=== PATIENT | male | born 1955 | race Caucasian/White ===

== ENCOUNTER → 2020-12-21 | Outpatient (CLI) | payer OTHER ==
[2020-12-21 11:05] LABS: ALBUMIN 4.5 g/dL (3.4-4.8); POTASSIUM 3.7 mmol/L (3.5-5.1)
[2020-12-21 11:06] LABS: CALCIUM 8.7 mg/dL (8.3-10.5)
[2020-12-21 11:07] LABS: TOTAL PROTEIN 7.1 g/dL (6.2-8.1)
[2020-12-21 11:09] LABS: TOTAL BILIRUBIN 0.5 mg/dL (0.2-1.2)
[2020-12-21 11:13] LABS: EOS # 0.2 (0.04-0.40); EOS % 2.9 % (0.0-4.0); HEMATOCRIT 43.4 % (42.0-52.0); HEMOGLOBIN 14.5 g/dL (13.5-18.0); LYMPH# 1.6 (1.50-4.00); MEAN CELL VOLUME 93 fl (78-100); MEAN CORPUSCULAR HEMOGLOBIN 31 pg (27-31); MEAN CORPUSCULAR HGB CONC 33 g/dL (33-37); MEAN PLATELET VOLUME 9.8 fl (7.4-10.4); MONO # 0.5 (0.20-0.80); PLATELET COUNT 181 K/mm3 (130-400); RED BLOOD COUNT 4.66 M/mm3 (4.20-5.60); RED CELL DISTRIBUTION WIDTH 12.8 % (11.5-14.5); WHITE BLOOD COUNT 6.2 K/mm3 (4.8-10.8)
== END ==
LOC: LAB 10:33
PROVIDERS: Internal Medicine
DX: I10 Essential (primary) hypertension (principal); I25.10 Atherosclerotic heart disease of native coronary artery without angina pectoris; K90.9 Intestinal malabsorption, unspecified

== ENCOUNTER 2021-03-31 10:51 | Observation (INO) | payer MEDICARE ==
[2021-03-31 11:12] LABS: BASO # 0.01 (0.02-0.10); EOS # 0.09 (0.04-0.40); HEMATOCRIT 46.1 % (42.0-52.0); HEMOGLOBIN 15.8 g/dL (13.5-18.0); LYMPH# 0.84 (1.50-4.00); MEAN CELL VOLUME 93 fl (78-100); MEAN CORPUSCULAR HEMOGLOBIN 32 pg (27-31); MEAN CORPUSCULAR HGB CONC 34 g/dL (33-37); MEAN PLATELET VOLUME 9.5 fl (7.4-10.4); MONO # 0.17 (0.20-0.80); NEU # 1.85 (1.40-6.50); PLATELET COUNT 168 K/mm3 (130-400); RED BLOOD COUNT 4.94 M/mm3 (4.20-5.60)
[2021-03-31 11:21] LABS: ALBUMIN 4.2 g/dL (3.4-4.8)
[2021-03-31 11:22] LABS: POTASSIUM 4.3 mmol/L (3.5-5.1); SODIUM 140 mmol/L (136-145)
[2021-03-31 11:23] LABS: CALCIUM 8.6 mg/dL (8.3-10.5)
[2021-03-31 11:24] LABS: GLUCOSE 135 mg/dL (75-110); TOTAL PROTEIN 6.7 g/dL (6.2-8.1)
[2021-03-31 11:25] LABS: CARBON DIOXIDE 24 mmol/L (23-31)
[2021-03-31 11:26] LABS: TOTAL BILIRUBIN 0.9 mg/dL (0.2-1.2)
[2021-03-31 11:29] LABS: AST-SGOT 19 U/L (5-34)
[2021-03-31 11:30] LABS: ALT/SGPT 28 U/L (0-55)
[2021-03-31 11:35] LABS: PROTHROMBIN TIME 10.1 SECONDS (9.0-12.0)
[2021-03-31 11:46] LABS: TROPONIN-I < 0.03 ng/mL (<0.030)
[2021-03-31 11:58] LABS: D-DIMER 1.8 mg/L FEU (0.15-0.50)
[2021-03-31 12:16] VITALS: BP 128/91
[2021-03-31] MEDS ORDERED: AMLODIPINE BESYL5 MG PO (12:23)
[2021-03-31] MEDS ORDERED: ATORVASTATIN CA40 MG PO (12:23)
[2021-03-31] MEDS ORDERED: COZAAR25 M1 PO (12:23)
[2021-03-31] MEDS ORDERED: INDERAL LA80 MG PO (12:24)
[2021-03-31] MEDS ORDERED: ISOSORBIDE MONO60 M2 PO (12:24)
[2021-03-31] MEDS ORDERED: PROAIR HFA0.09 MG/AC IH (12:25)
[2021-03-31] MEDS ORDERED: CLOPIDOGREL PO (12:25)
[2021-03-31] MEDS ORDERED: ASPIRIN E.C. 8181 MG PO (12:25)
[2021-03-31] MEDS ORDERED: PRILOSEC 20MG20 MG PO (12:26)
[2021-03-31 14:00] VITALS: BP 120/81
[2021-03-31 14:07] LABS: URINE APPEARANCE CLEAR; URINE BILIRUBIN NEGATIVE (NEGATIVE); URINE COLOR YELLOW; URINE GLUCOSE NEGATIVE (NEGATIVE); URINE KETONE NEGATIVE (NEGATIVE); URINE NITRATE NEGATIVE (NEGATIVE); URINE PROTEIN(semi-quant) TRACE mg/dL (NEGATIVE); URINE UROBILINOGEN NORMAL (NORMAL)
[2021-03-31 14:08] LABS: URINE BLOOD NEGATIVE (NEGATIVE); URINE LEUKOCYTE ESTERASE NEGATIVE (NEGATIVE)
[2021-03-31 16:17] VITALS: BP 105/66
--- NOTE | 2021-03-31 16:18 | NUR ---
Patient admitted to observation, room 205 from ED. C/o abd pain, N/V/D and chest discomfort. He states, "it feels like chest pressure". Patient had multiple liquid, brown, foul smelling stool in ED. 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 Has a hx of kidney stones and bladder cancer. Cancer removed and patient f/u with urology. Had x3 stent placment for MT in 2019. Patient's , Anna at bedside. Patient A&Ox4, able to answer questions and make medical desicions. Placed on telemetry and given a clear liquid diet. Abd round, soft with rigitity to RLQ. No pain or dicomfort on palpation. Audible in all 4 quadrants. Overall apperance grayish with general malaise. Meets criteria for COVID-19 testing. Test complete. Patient negative for COVID-19 and no longer in isolation precautions. Call light within reach. Bed in lowest and locked position.
[2021-03-31 16:23] VITALS: BP 105/66
--- NOTE | 2021-03-31 17:06 | NUR ---
INITIATE TELEMETRY AT THIS TIME
[2021-03-31 18:07] VITALS: BP 105/66
--- NOTE | 2021-03-31 19:00 | NUR ---
Report received from Inna CARMONA.
--- NOTE | 2021-03-31 20:00 | NUR ---
Patient awakened for meds. Reports minimal pain at this time and feeling better. HS meds reviewed and given. Pleasant, alert and oriented x 4. Denies shortness of breath. Kahn draining clear yellow urine.
--- NOTE | 2021-03-31 21:30 | NUR ---
Patient 1 assist to BSC and passes alot of gas, has small loose bm. Rests back in bed.
[2021-03-31 21:57] VITALS: BP 130/79
--- NOTE | 2021-04-01 01:40 | NUR ---
Patient has been resting with eyes closed. Respirations with ease.
[2021-04-01 02:12] VITALS: BP 121/73
--- NOTE | 2021-04-01 04:30 | NUR ---
Patient awakened for meds. Denies pain then states "just a slight headache"but denies need for pain med. Alert and oriented x 4. Returns to resting with eyes closed.
[2021-04-01 06:20] VITALS: BP 123/77
[2021-04-01 07:00] LABS: EOS # 0.12 (0.04-0.40); HEMATOCRIT 40.1 % (42.0-52.0); HEMOGLOBIN 13.9 g/dL (13.5-18.0); LYMPH# 0.87 (1.50-4.00); MEAN CELL VOLUME 94 fl (78-100); MEAN CORPUSCULAR HEMOGLOBIN 33 pg (27-31); MEAN CORPUSCULAR HGB CONC 35 g/dL (33-37); MEAN PLATELET VOLUME 9.6 fl (7.4-10.4); MONO # 0.33 (0.20-0.80); NEU # 4.62 (1.40-6.50); PLATELET COUNT 142 K/mm3 (130-400); RED BLOOD COUNT 4.26 M/mm3 (4.20-5.60); RED CELL DISTRIBUTION WIDTH 12.4 % (11.5-14.5)
[2021-04-01 07:11] LABS: POTASSIUM 4.2 mmol/L (3.5-5.1)
[2021-04-01 07:12] LABS: CALCIUM 7.8 mg/dL (8.3-10.5)
--- NOTE | 2021-04-01 07:22 | NUR ---
REPORT RECEIVED FROM SAMY CARMONA. PT AWAKE ET SITTING UP IN BED. HE DENIES ANY PAIN OR CONCERNS AT THIS TIME. CALL LIGHT IN REACH.
[2021-04-01 09:47] VITALS: BP 128/75
--- NOTE | 2021-04-01 10:20 | NUR ---
IV fluids dc'c per Mere Ugarte RN per dr. balbuena.
[2021-04-01 13:35] VITALS: BP 111/72
[2021-04-01] MEDS ORDERED: DOXYCYCLINE MO100 M3 PO (16:37)
--- NOTE | 2021-04-01 16:45 | NUR ---
PT CALLED ET STATED HE VOIDED ET IS READY TO BE DISCHARGED.
--- NOTE | 2021-04-01 16:47 | NUR ---
INT, TELE, ET ALAN CATHETER DC'D AT THIS TIME. PT UP GETTING DRESSED ET WILL CALL WHEN HE VOIDS ET IS READY TO DISCHARGE.
--- NOTE | 2021-04-01 16:57 | NUR ---
PT NOTIFIED THIS NURSE THAT HE HAD VOIDED ET IS READY TO DC. HE DENIES ANY DISCOMFORT WITH URINATION POST CATHETER REMOVAL.
--- NOTE | 2021-04-01 17:05 | NUR ---
PT LEFT UNIT ACCOMPANIED BY STAFF ET HIS . HE LEFT WITH ALL PERSONAL BELONGINGS ET DISCHARGE PAPERWORK.
[2021-04-02 19:22] LABS: TB LYME DISEASE SEROLOGY Equivocal (Negative)
[2021-04-02 23:29] LABS: TB A PHAGOCYTOPHILUM IgG <1:64 titer (<1:64)
[2021-04-02 23:33] LABS: TB BABESIA MICROTI IgG <1:64 titer (<1:64); TB E CHAFFEENSIS IgG <1:64 titer (<1:64)
== END 2021-04-01 17:05 | disposition home or self-care (01) ==
LOC: ED 10:51 → MED/SURG 13:33
PROVIDERS: ADMIT Physician Assistant
DX: R07.89 Other chest pain (principal); R55 Syncope and collapse; K52.9 Noninfective gastroenteritis and colitis, unspecified; N13.30 Unspecified hydronephrosis; S30.862A Insect bite (nonvenomous) of penis, initial encounter; W57.XXXA Bitten or stung by nonvenomous insect and other nonvenomous arthropods, initial encounter; I25.10 Atherosclerotic heart disease of native coronary artery without angina pectoris; I10 Essential (primary) hypertension; Z79.82 Long term (current) use of aspirin; Z85.51 Personal history of malignant neoplasm of bladder; Z79.899 Other long term (current) drug therapy; Z86.19 Personal history of other infectious and parasitic diseases
CPT/HCPCS: G0378; J1650; J1885; J2405; J2550; J7030; Q9967

== ENCOUNTER 2021-05-11 05:24 | Emergency (ER) | payer MEDICARE ==
[~2021-05-11 05:24] MED LIST: AMLODIPINE BESYL5 MG PO; ASPIRIN E.C. 8181 MG PO; ATORVASTATIN CA40 MG PO; CLOPIDOGREL PO; COZAAR25 M1 PO; DOXYCYCLINE MO100 M3 PO; INDERAL LA80 MG PO; ISOSORBIDE MONO60 M2 PO; PRILOSEC 20MG20 MG PO; PROAIR HFA0.09 MG/AC IH
[2021-05-11 06:24] LABS: BASO # 0.05 (0.02-0.10); EOS # 0.43 (0.04-0.40); EOS % 10.9 % (0.0-4.0); HEMATOCRIT 40.8 % (42.0-52.0); HEMOGLOBIN 14.1 g/dL (13.5-18.0); LYMPH# 1.08 (1.50-4.00); MEAN CELL VOLUME 93 fl (78-100); MEAN CORPUSCULAR HEMOGLOBIN 32 pg (27-31); MEAN CORPUSCULAR HGB CONC 35 g/dL (33-37); MEAN PLATELET VOLUME 9.4 fl (7.4-10.4); MONO # 0.38 (0.20-0.80); NEU # 2.01 (1.40-6.50); PLATELET COUNT 160 K/mm3 (130-400); RED CELL DISTRIBUTION WIDTH 11.8 % (11.5-14.5)
[2021-05-11 06:44] LABS: ALBUMIN 4.1 g/dL (3.4-4.8); POTASSIUM 3.9 mmol/L (3.5-5.1); SODIUM 140 mmol/L (136-145)
[2021-05-11 06:45] LABS: CALCIUM 8.7 mg/dL (8.3-10.5)
[2021-05-11 06:47] LABS: GLUCOSE 122 mg/dL (75-110); TOTAL PROTEIN 6.7 g/dL (6.2-8.1)
[2021-05-11 06:48] LABS: CARBON DIOXIDE 20 mmol/L (23-31); TOTAL BILIRUBIN 0.5 mg/dL (0.2-1.2)
[2021-05-11 06:52] LABS: AST-SGOT 18 U/L (5-34)
[2021-05-11 06:53] LABS: ALT/SGPT 24 U/L (0-55)
[2021-05-11 07:10] LABS: TROPONIN-I < 0.03 ng/mL (<0.030)
[2021-05-11 07:58] LABS: URINE APPEARANCE CLEAR; URINE BILIRUBIN NEGATIVE (NEGATIVE); URINE BLOOD NEGATIVE (NEGATIVE); URINE COLOR YELLOW; URINE GLUCOSE NEGATIVE (NEGATIVE); URINE KETONE NEGATIVE (NEGATIVE); URINE LEUKOCYTE ESTERASE NEGATIVE (NEGATIVE); URINE MUCUS PRESENT (NOT PRESENT); URINE NITRATE NEGATIVE (NEGATIVE); URINE PROTEIN(semi-quant) NEGATIVE (NEGATIVE); URINE UROBILINOGEN NORMAL (NORMAL); URINE WBC 0-1 /hpf (0-3)
[2021-05-11] MEDS ORDERED: ZITHROMAX Z PA250 MG PO (09:20)
[2021-05-11] MEDS ORDERED: PREDNISONE10 MG PO (09:20)
[2021-05-11] MEDS ORDERED: PROAIR HFA0.09 MG/AC IH (09:20)
[2021-05-11] MEDS ORDERED: IPRATROPIUM BROM3 M1 IH (09:20)
[2021-05-11 09:36] VITALS: BP 142/80
== END 2021-05-11 09:37 | disposition home or self-care (01) ==
LOC: ED 05:24
PROVIDERS: Nurse Practitioner
DX: J45.901 Unspecified asthma with (acute) exacerbation (principal); R07.89 Other chest pain; R42 Dizziness and giddiness; I25.2 Old myocardial infarction; Z79.82 Long term (current) use of aspirin; Z20.822 Contact with and (suspected) exposure to COVID-19
CPT/HCPCS: J2930

== ENCOUNTER → 2021-05-21 | Outpatient (CLI) | payer MEDICARE ==
[~2021-05-21] MED LIST changes: +IPRATROPIUM BROM3 M1 IH; +PREDNISONE10 MG PO; +ZITHROMAX Z PA250 MG PO
== END ==
LOC: LAB 12:05
DX: K90.9 Intestinal malabsorption, unspecified (principal)

== ENCOUNTER → 2021-06-29 | Outpatient (CLI) | payer MEDICARE ==
[2021-06-29 14:38] LABS: BASO # 0.03 (0.02-0.10); EOS % 4.8 % (0.0-4.0); HEMATOCRIT 40.5 % (42.0-52.0); HEMOGLOBIN 13.7 g/dL (13.5-18.0); LYMPH# 1.24 (1.50-4.00); MEAN CELL VOLUME 94 fl (78-100); MEAN CORPUSCULAR HEMOGLOBIN 32 pg (27-31); MEAN CORPUSCULAR HGB CONC 34 g/dL (33-37); MEAN PLATELET VOLUME 9.3 fl (7.4-10.4); MONO # 0.42 (0.20-0.80); NEU # 2.25 (1.40-6.50); PLATELET COUNT 156 K/mm3 (130-400); RED CELL DISTRIBUTION WIDTH 12.2 % (11.5-14.5); WHITE BLOOD COUNT 4.2 K/mm3 (4.8-10.8)
[2021-06-29 14:46] LABS: ALBUMIN 4.1 g/dL (3.4-4.8); POTASSIUM 4.1 mmol/L (3.5-5.1); SODIUM 141 mmol/L (136-145)
[2021-06-29 14:49] LABS: GLUCOSE 110 mg/dL (75-110); TOTAL PROTEIN 6.7 g/dL (6.2-8.1)
[2021-06-29 14:50] LABS: CARBON DIOXIDE 22 mmol/L (23-31)
[2021-06-29 14:51] LABS: TOTAL BILIRUBIN 0.9 mg/dL (0.2-1.2)
[2021-06-29 14:54] LABS: AST-SGOT 20 U/L (5-34)
[2021-06-29 14:55] LABS: ALT/SGPT 29 U/L (0-55)
[2021-06-29 16:25] LABS: ERYTHROCYTE SEDIMENTATION RATE 6 mm/hr (0-20)
== END ==
LOC: LAB 14:25
PROVIDERS: Internal Medicine
DX: J45.909 Unspecified asthma, uncomplicated (principal); I10 Essential (primary) hypertension

== ENCOUNTER → 2021-07-02 | Outpatient (CLI) | payer MEDICARE | LOC: RAD 07:56 | DX: R06.00 Dyspnea, unspecified (principal); Z95.5 Presence of coronary angioplasty implant and graft | CPT/HCPCS: Q9967 ==

== ENCOUNTER → 2021-07-29 | Outpatient (CLI) | payer MEDICARE ==
[2021-07-31 06:47] LABS: ASPERGILLUS FUMIGATUS AL COUNT 1.79 kU/L (()); BERMUDA GRASS ALLERGEN COUNT <0.10 kU/L (()); BOX ELDER-MAPLE ALLERGEN COUNT 0.15 kU/L (()); CAT DANDER ALLERGEN COUNT 0.14 kU/L (()); CLADOSPORIUM ALLERGEN COUNT 1.21 kU/L (()); COCKROACH ALLERGEN COUNT 0.48 kU/L (()); COTTONWOOD TREE ALLERGEN COUNT <0.10 kU/L (()); DOG DANDER ALLERGEN COUNT 0.24 kU/L (()); DUST MITES (D.F.) ALLERG COUNT 1.16 kU/L (()); DUST MITES (D.P.) ALLERG COUNT 1.26 kU/L (()); ELM TREE ALLERGEN COUNT 0.15 kU/L (()); FIREBUSH ALLERGEN COUNT <0.10 kU/L (()); OAK ALLERGEN COUNT 0.19 kU/L (()); RUSSIAN THISTLE ALLERGEN COUNT 0.12 kU/L (()); SHORT RAGWEED ALLERGEN COUNT 0.19 kU/L (())
== END ==
LOC: LAB 12:21
PROVIDERS: Internal Medicine Pulmonary Disease
DX: J45.909 Unspecified asthma, uncomplicated (principal)

== ENCOUNTER → 2021-11-09 | Outpatient (CLI) | payer MEDICARE | LOC: LAB 13:56 | DX: R05.9 Cough, unspecified (principal); Z20.822 Contact with and (suspected) exposure to COVID-19 ==

== ENCOUNTER 2021-12-08 11:01 | Emergency (ER) | payer MEDICARE ==
[~2021-12-08] VITALS: Ht 175.3 cm; Wt 84.0 kg
[2021-12-08] MEDS ORDERED: VITAMIN D3125 MC4 PO (11:48)
[2021-12-08] MEDS ORDERED: EPINEPHRIN0.3 MG/0.3 IJ (11:48)
[2021-12-08 11:49] LABS: BASO # 0.06 K/mm3 (0.02-0.10); EOS # 0.59 K/mm3 (0.04-0.40); EOS % 13.3 % (0.0-4.0); HEMATOCRIT 46.8 % (42.0-52.0); LYMPH# 1.19 K/mm3 (1.50-4.00); MEAN CELL VOLUME 92 fl (78-100); MEAN CORPUSCULAR HEMOGLOBIN 32 pg (27-31); MEAN CORPUSCULAR HGB CONC 34 g/dL (33-37); MEAN PLATELET VOLUME 9.8 fl (7.4-10.4); MONO # 0.39 K/mm3 (0.20-0.80); NEU # 2.21 K/mm3 (1.40-6.50); PLATELET COUNT 215 K/mm3 (130-400); RED BLOOD COUNT 5.08 M/mm3 (4.20-5.60); RED CELL DISTRIBUTION WIDTH 12.1 % (11.5-14.5); WHITE BLOOD COUNT 4.4 K/mm3 (4.8-10.8)
[2021-12-08] MEDS ORDERED: FLUTICASON0.05 MG/Ac NS (11:50)
[2021-12-08] MEDS ORDERED: ATROVENT I0.2 MG/1 M IH (11:51)
[2021-12-08] MEDS ORDERED: SINGULAIR 110 MG/TAB PO (11:52)
[2021-12-08] MEDS ORDERED: NITROSTAT0.4 M1 SL (11:53)
[2021-12-08] MEDS ORDERED: PREDNISONE20 M1 PO (11:54)
[2021-12-08] MEDS ORDERED: PROPRANOLOL ER80 MG PO (11:54)
[2021-12-08 11:56] LABS: ALBUMIN 4.5 g/dL (3.4-4.8); POTASSIUM 4.2 mmol/L (3.5-5.1)
[2021-12-08 11:57] LABS: CALCIUM 9.4 mg/dL (8.3-10.5)
[2021-12-08 11:58] LABS: TOTAL PROTEIN 7.2 g/dL (6.2-8.1)
[2021-12-08] MEDS ORDERED: SYMBICORT1 AE3 IH ×2 (11:58→13:15)
[2021-12-08] MEDS ORDERED: FLOMAX0.4 MG PO (11:59)
[2021-12-08 12:00] LABS: TOTAL BILIRUBIN 0.8 mg/dL (0.2-1.2)
[2021-12-08] MEDS ORDERED: ZYRTEC10 M3 PO (12:00)
[2021-12-08] MEDS ORDERED: ZITHROMAX500 M2 PO (13:15)
[2021-12-08] MEDS ORDERED: PREDNISONE20 MG PO (13:15)
[2021-12-08 13:37] VITALS: BP 115/80
== END 2021-12-08 13:55 | disposition home or self-care (01) ==
LOC: ED 11:01
PROVIDERS: Physician Assistant
DX: J45.901 Unspecified asthma with (acute) exacerbation (principal); I10 Essential (primary) hypertension; I25.10 Atherosclerotic heart disease of native coronary artery without angina pectoris; Z20.822 Contact with and (suspected) exposure to COVID-19; Z79.82 Long term (current) use of aspirin; Z79.899 Other long term (current) drug therapy
CPT/HCPCS: J2930

== ENCOUNTER 2022-12-05 11:07 | Emergency (ER) | payer MEDICARE ==
[~2022-12-05 11:07] MED LIST changes: +ATROVENT I0.2 MG/1 M IH; +EPINEPHRIN0.3 MG/0.3 IJ; +FLOMAX0.4 MG PO; +FLUTICASON0.05 MG/Ac NS; +NITROSTAT0.4 M1 SL; +PREDNISONE20 M1 PO; +PREDNISONE20 MG PO; +PROPRANOLOL ER80 MG PO; +SINGULAIR 110 MG/TAB PO; +SYMBICORT1 AE3 IH; +VITAMIN D3125 MC4 PO; +ZITHROMAX500 M2 PO; +ZYRTEC10 M3 PO
[2022-12-05] MEDS ORDERED: PREDNISONE20 M1 PO (12:01)
[2022-12-05] MEDS ORDERED: MORGIDOX 1X100100 MG PO (12:01)
[2022-12-05 12:14] VITALS: BP 114/74
== END 2022-12-05 12:15 | disposition home or self-care (01) ==
LOC: ED 11:07
DX: U07.1 COVID-19 (principal)

== ENCOUNTER 2023-02-08 15:10 | Emergency (ER) | payer MEDICARE ==
[~2023-02-08] VITALS: Ht 170.2 cm; Wt 81.7 kg
[~2023-02-08 15:10] MED LIST changes: +MORGIDOX 1X100100 MG PO
[2023-02-08 15:51] LABS: BASO # 0.05 K/mm3 (0.02-0.10); EOS # 1.02 K/mm3 (0.04-0.40); HEMATOCRIT 45.5 % (42.0-52.0); HEMOGLOBIN 15.4 g/dL (13.5-18.0); LYMPH# 1.41 K/mm3 (1.50-4.00); MEAN CELL VOLUME 92 fl (78-100); MEAN CORPUSCULAR HEMOGLOBIN 31 pg (27-31); MEAN CORPUSCULAR HGB CONC 34 g/dL (33-37); MEAN PLATELET VOLUME 9.5 fl (7.4-10.4); NEU # 2.87 K/mm3 (1.40-6.50); PLATELET COUNT 205 K/mm3 (130-400); RED BLOOD COUNT 4.97 M/mm3 (4.20-5.60); RED CELL DISTRIBUTION WIDTH 12.2 % (11.5-14.5); WHITE BLOOD COUNT 5.7 K/mm3 (4.8-10.8)
[2023-02-08 16:02] LABS: ALBUMIN 4.5 g/dL (3.4-4.8)
[2023-02-08 16:03] LABS: POTASSIUM 3.8 mmol/L (3.5-5.1); SODIUM 140 mmol/L (136-145)
[2023-02-08 16:04] LABS: CALCIUM 9.4 mg/dL (8.3-10.5)
[2023-02-08 16:05] LABS: GLUCOSE 148 mg/dL (75-110); TOTAL PROTEIN 7.3 g/dL (6.2-8.1)
[2023-02-08 16:06] LABS: CARBON DIOXIDE 21 mmol/L (23-31)
[2023-02-08 16:07] LABS: TOTAL BILIRUBIN 0.7 mg/dL (0.2-1.2)
[2023-02-08 16:10] LABS: AST-SGOT 16 U/L (5-34)
[2023-02-08 16:11] LABS: ALT/SGPT 22 U/L (0-55)
[2023-02-08 16:24] LABS: TROPONIN-I < 0.030 ng/mL (<0.030)
[2023-02-08] MEDS ORDERED: PREDNISONE20 MG PO (16:43)
[2023-02-08 17:09] VITALS: BP 162/83
== END 2023-02-08 16:57 | disposition home or self-care (01) ==
LOC: ED 15:10
PROVIDERS: Family Medicine
DX: J45.901 Unspecified asthma with (acute) exacerbation (principal); Z20.822 Contact with and (suspected) exposure to COVID-19
CPT/HCPCS: J0696; J2930; J7030

== ENCOUNTER → 2023-02-16 | Outpatient (CLI) | payer MEDICARE ==
[2023-02-16 12:35] LABS: BASO # 0.01 K/mm3 (0.02-0.10); EOS # 0.29 K/mm3 (0.04-0.40); EOS % 3.5 % (0.0-4.0); HEMATOCRIT 46.2 % (42.0-52.0); HEMOGLOBIN 15.6 g/dL (13.5-18.0); LYMPH# 1.62 K/mm3 (1.50-4.00); MEAN CELL VOLUME 93 fl (78-100); MEAN CORPUSCULAR HEMOGLOBIN 31 pg (27-31); MEAN CORPUSCULAR HGB CONC 34 g/dL (33-37); MEAN PLATELET VOLUME 9.1 fl (7.4-10.4); MONO # 0.64 K/mm3 (0.20-0.80); NEU # 5.79 K/mm3 (1.40-6.50); PLATELET COUNT 187 K/mm3 (130-400); RED BLOOD COUNT 4.99 M/mm3 (4.20-5.60); RED CELL DISTRIBUTION WIDTH 12.6 % (11.5-14.5); WHITE BLOOD COUNT 8.4 K/mm3 (4.8-10.8)
[2023-02-16 12:41] LABS: POTASSIUM 4.1 mmol/L (3.5-5.1)
[2023-02-16 12:42] LABS: ALBUMIN 4.2 g/dL (3.4-4.8)
[2023-02-16 12:43] LABS: CALCIUM 9.1 mg/dL (8.3-10.5)
[2023-02-16 12:44] LABS: TOTAL PROTEIN 6.5 g/dL (6.2-8.1)
[2023-02-16 12:46] LABS: TOTAL BILIRUBIN 1.3 mg/dL (0.2-1.2)
[2023-02-16 12:51] LABS: MAGNESIUM 2.05 mg/dL (1.60-2.60)
[2023-02-16 13:04] LABS: PH-URINE 6.5 (5.0 - 8.0); URINE APPEARANCE CLEAR; URINE BILIRUBIN NEGATIVE (NEGATIVE); URINE BLOOD NEGATIVE (NEGATIVE); URINE COLOR LIGHT YELLOW; URINE GLUCOSE NEGATIVE (NEGATIVE); URINE KETONE NEGATIVE (NEGATIVE); URINE LEUKOCYTE ESTERASE NEGATIVE (NEGATIVE); URINE MUCUS PRESENT (NOT PRESENT); URINE NITRATE NEGATIVE (NEGATIVE); URINE PROTEIN(semi-quant) TRACE (NEGATIVE); URINE UROBILINOGEN NORMAL (NORMAL); URINE WBC 0-1 /hpf (0-3)
[2023-02-16 13:50] LABS: ERYTHROCYTE SEDIMENTATION RATE 5 mm/hr (0-20)
== END ==
LOC: LAB 12:21
PROVIDERS: Internal Medicine
DX: C67.9 Malignant neoplasm of bladder, unspecified (principal); I10 Essential (primary) hypertension; K90.9 Intestinal malabsorption, unspecified; J45.909 Unspecified asthma, uncomplicated; E55.9 Vitamin D deficiency, unspecified; R10.32 Left lower quadrant pain

== ENCOUNTER → 2023-07-28 | Outpatient (CLI) | payer MEDICARE ==
[2023-07-28 13:10] LABS: URINE WBC 0 /hpf (0-3)
[2023-07-28 13:19] LABS: BASO # 0.03 K/mm3 (0.02-0.10); EOS # 0.19 K/mm3 (0.04-0.40); EOS % 2.8 % (0.0-4.0); HEMATOCRIT 44.7 % (42.0-52.0); HEMOGLOBIN 14.9 g/dL (13.5-18.0); MEAN CELL VOLUME 94 fl (78-100); MEAN CORPUSCULAR HEMOGLOBIN 31 pg (27-31); MEAN CORPUSCULAR HGB CONC 33 g/dL (33-37); MEAN PLATELET VOLUME 9.4 fl (7.4-10.4); MONO # 0.54 K/mm3 (0.20-0.80); NEU # 4.62 K/mm3 (1.40-6.50); PLATELET COUNT 171 K/mm3 (130-400); RED BLOOD COUNT 4.74 M/mm3 (4.20-5.60); RED CELL DISTRIBUTION WIDTH 11.9 % (11.5-14.5); WHITE BLOOD COUNT 6.8 K/mm3 (4.8-10.8)
[2023-07-28 13:23] LABS: ALBUMIN 4.4 g/dL (3.4-4.8)
[2023-07-28 13:24] LABS: POTASSIUM 4.8 mmol/L (3.5-5.1)
[2023-07-28 13:25] LABS: CALCIUM 9.7 mg/dL (8.3-10.5)
[2023-07-28 13:26] LABS: TOTAL PROTEIN 7.1 g/dL (6.2-8.1)
[2023-07-28 13:28] LABS: TOTAL BILIRUBIN 0.8 mg/dL (0.2-1.2)
[2023-07-28 13:34] LABS: MAGNESIUM 2.07 mg/dL (1.60-2.60)
[2023-07-28 13:39] LABS: PROTHROMBIN TIME 10.3 SECONDS (9.0-12.0)
[2023-07-28 14:35] LABS: PH-URINE 5.5 (5.0 - 8.0); URINE APPEARANCE CLEAR; URINE BILIRUBIN NEGATIVE (NEGATIVE); URINE BLOOD NEGATIVE (NEGATIVE); URINE COLOR YELLOW; URINE GLUCOSE NEGATIVE (NEGATIVE); URINE KETONE NEGATIVE (NEGATIVE); URINE LEUKOCYTE ESTERASE NEGATIVE (NEGATIVE); URINE NITRATE NEGATIVE (NEGATIVE); URINE PROTEIN(semi-quant) NEGATIVE (NEGATIVE); URINE UROBILINOGEN NORMAL (NORMAL)
== END ==
LOC: LAB 12:16
PROVIDERS: Internal Medicine
DX: Z01.818 Encounter for other preprocedural examination (principal); C67.9 Malignant neoplasm of bladder, unspecified; I25.10 Atherosclerotic heart disease of native coronary artery without angina pectoris; J45.909 Unspecified asthma, uncomplicated; M17.0 Bilateral primary osteoarthritis of knee; N39.0 Urinary tract infection, site not specified

== ENCOUNTER 2023-09-13 07:48 | Outpatient (RCR) | payer MEDICARE | END 2023-10-12 16:15 | disposition home or self-care (01) | LOC: PT 07:48 | DX: Z96.652 Presence of left artificial knee joint (principal) ==

== ENCOUNTER → 2024-05-27 | Outpatient (CLI) | payer MEDICARE ==
[2024-05-27 09:09] LABS: BASO # 0.03 K/mm3 (0.02-0.10); HEMOGLOBIN 14.3 g/dL (13.5-18.0); LYMPH# 0.87 K/mm3 (1.50-4.00); MEAN CELL VOLUME 88 fl (78-100); MEAN CORPUSCULAR HEMOGLOBIN 31 pg (27-31); MEAN CORPUSCULAR HGB CONC 35 g/dL (33-37); MEAN PLATELET VOLUME 9.3 fl (7.4-10.4); MONO # 0.68 K/mm3 (0.20-0.80); NEU # 7.11 K/mm3 (1.40-6.50); PLATELET COUNT 171 K/mm3 (130-400); RED BLOOD COUNT 4.65 M/mm3 (4.20-5.60); RED CELL DISTRIBUTION WIDTH 12.2 % (11.5-14.5); WHITE BLOOD COUNT 8.7 K/mm3 (4.8-10.8)
[2024-05-27 09:22] LABS: ALBUMIN 4.3 g/dL (3.4-4.8)
[2024-05-27 09:24] LABS: CALCIUM 9.6 mg/dL (8.3-10.5)
[2024-05-27 09:25] LABS: TOTAL PROTEIN 6.5 g/dL (6.2-8.1)
[2024-05-27 09:27] LABS: TOTAL BILIRUBIN 0.9 mg/dL (0.2-1.2)
[2024-05-27 09:31] LABS: MAGNESIUM 2.14 mg/dL (1.60-2.60)
[2024-05-27 23:40] LABS: TESTOSTERONE 258 ng/dL (221-716)
[2024-05-27 23:48] LABS: HEPATITIS C VIRUS ANTIBODY Negative (Negative)
== END ==
LOC: LAB 08:43
PROVIDERS: Internal Medicine
DX: Z12.5 Encounter for screening for malignant neoplasm of prostate (principal); Z11.59 Encounter for screening for other viral diseases; Z12.11 Encounter for screening for malignant neoplasm of colon; I10 Essential (primary) hypertension; K90.9 Intestinal malabsorption, unspecified; R73.9 Hyperglycemia, unspecified; F52.21 Male erectile disorder

== ENCOUNTER → 2024-06-03 | Outpatient (CLI) | payer MEDICARE | LOC: RAD 10:26 → MAMMO 10:30 | DX: M85.852 Other specified disorders of bone density and structure, left thigh (principal); M85.851 Other specified disorders of bone density and structure, right thigh ==

== ENCOUNTER → 2024-11-28 | Outpatient (CLI) | payer MEDICARE ==
[2024-11-28 14:36] LABS: BASO # 0.03 K/mm3 (0.02-0.10); HEMATOCRIT 44.3 % (42.0-52.0); HEMOGLOBIN 15.3 g/dL (13.5-18.0); LYMPH# 0.74 K/mm3 (1.50-4.00); MEAN CELL VOLUME 89 fl (78-100); MEAN CORPUSCULAR HEMOGLOBIN 31 pg (27-31); MEAN CORPUSCULAR HGB CONC 35 g/dL (33-37); MEAN PLATELET VOLUME 9.3 fl (7.4-10.4); MONO # 0.19 K/mm3 (0.20-0.80); NEU # 7.55 K/mm3 (1.40-6.50); PLATELET COUNT 224 K/mm3 (130-400); RED BLOOD COUNT 4.98 M/mm3 (4.20-5.60); RED CELL DISTRIBUTION WIDTH 12.2 % (11.5-14.5); WHITE BLOOD COUNT 8.6 K/mm3 (4.8-10.8)
[2024-11-28 14:44] LABS: ALBUMIN 4.4 g/dL (3.4-4.8)
[2024-11-28 14:46] LABS: CALCIUM 9.4 mg/dL (8.3-10.5)
[2024-11-28 14:47] LABS: TOTAL PROTEIN 6.8 g/dL (6.2-8.1)
[2024-11-28 14:49] LABS: TOTAL BILIRUBIN 0.8 mg/dL (0.2-1.2)
[2024-11-28 14:53] LABS: MAGNESIUM 1.86 mg/dL (1.60-2.60)
== END ==
LOC: LAB 14:21
PROVIDERS: Internal Medicine
DX: I10 Essential (primary) hypertension (principal); K90.9 Intestinal malabsorption, unspecified; R73.03 Prediabetes